=== PATIENT | male | born 1935 | race African-American/Black ===

== ENCOUNTER 2017-06-11 17:51 | Inpatient (IN) | payer MEDICARE, MEDICAID ==
[~2017-06-11] VITALS: Ht 175.3 cm; Wt 65.8 kg
--- NOTE | 2017-06-11 18:10 | NUR ---
JUDY AMBULIFE 719 FROM [facility] FOR MUSCLE WEAKNESS AND FEVER. NOTED RECTAL TEMP 101.9. SEEN BY MD FOR EVAL. PT AAOX2. DENIES OTHER SYMPTOMS. SAFETY AND COMFORT MEASURES PROVIDED. WILL MONITOR.
--- NOTE | 2017-06-11 18:20 | NUR ---
IV ACCESS STARTED, BLOOD DRAWN FOR LABS. MEDICATED ORDERED.
[2017-06-11 18:28] LABS: BASOPHILS # (AUTO) 0.1 /CMM (0.0-0.2); BASOPHILS % (AUTO) 0.7 % (0.0-2.0); EOSINOPHILS % (AUTO) 0.1 % (0.0-6.0); HEMATOCRIT 41 % (39-51); HEMOGLOBIN 13.8 g/dL (13.5-17.5); LYMPHOCYTES # (AUTO) 0.8 /CMM (0.8-4.8); MEAN CORPUSCULAR HEMOGLOBIN 33 PG (26.0-33.0); MEAN CORPUSCULAR HGB CONC 34 g/dl (31.0-36.0); MEAN CORPUSCULAR VOLUME 98 fL (80-96); MONOCYTES # (AUTO) 1.2 /CMM (0.1-1.30); MONOCYTES % (AUTO) 9.2 % (2.0-12.0); NEUTROPHILS # (AUTO) 11.4 /CMM (1.8-8.9); PLATELET COUNT (AUTO) 102 /CMM (150-450); RED BLOOD CELL COUNT(AUTO) 4.15 MIL/uL (4.5-6.0); WHITE BLOOD COUNT (AUTO) 13.5 K/uL (4.3-11.0)
[2017-06-11] MEDS ORDERED: IBUPROFEN 600 MG TABLET PO ONE ×2 (18:30→18:35)
[2017-06-11] MEDS ORDERED: ACETAMINOPHEN ES 500 MG TABLET PO ONE (18:30)
[2017-06-11] MEDS ORDERED: IV NS 0.9% 500 ML BAG IV ONE ×2 (18:30→19:30)
[2017-06-11] MEDS ORDERED: ACETAMINOPHEN ES 500 MG TABLET ONE (18:35)
[2017-06-11 18:37] LABS: CALCIUM, SERUM 9.5 mg/dL (8.5-10.1); CARBON DIOXIDE 32 mmol/L (21-32); CHLORIDE 96 mmol/L (98-107); CREATININE 1.5 mg/dL (0.6-1.3); GLUCOSE 112 mg/dL (74-106); POTASSIUM 4.1 mmol/L (3.5-5.1); SODIUM SERUM 135 mmol/L (136-145); UREA NITROGEN, BLOOD 19 mg/dL (7-18)
[2017-06-11 18:41] LABS: INR 1.22 (0.87-1.13)
[2017-06-11] MEDS ORDERED: AMLO2.5T PO (18:44)
[2017-06-11] MEDS ORDERED: ALBU18HF2 IH (18:44)
[2017-06-11] MEDS ORDERED: METF500T4 PO (18:44)
[2017-06-11] MEDS ORDERED: TRAZ-147 PO (18:44)
[2017-06-11] MEDS ORDERED: METO200T49 PO (18:44)
[2017-06-11] MEDS ORDERED: ASPI-1169 PO (18:44)
[2017-06-11] MEDS ORDERED: LISI40TA4 PO (18:44)
[2017-06-11] MEDS ORDERED: OLAN10TA3 PO (18:44)
[2017-06-11] MEDS ORDERED: ATOR20TA PO (18:44)
[2017-06-11] MEDS ORDERED: HYDR12.5 PO (18:44)
[2017-06-11 18:45] LABS: APPEARANCE,URINE Clear (CLEAR); BILIRUBIN,URINE Negative (NEGATIVE); BLOOD, URINE Trace-intact Ery/uL (NEGATIVE); COLOR,URINE Yellow (YELLOW); KETONES,URINE Negative (NEGATIVE); LEUKOCYTE ESTERASE ,URINE Negative (NEGATIVE); NITRITE, URINE Negative (NEGATIVE); PROTEIN,URINE >=300 mg/dl (NEGATIVE); UGLUCOSE Negative (NEGATIVE)
[2017-06-11 18:45] LABS: TROPONIN I 0.037 ng/mL (0.00-0.056)
[2017-06-11 18:50] LABS: ALANINE AMINOTRANSFERASE 45 U/L (12-78); ALBUMIN 3.6 g/dL (3.4-5.0); ALKALINE PHOSPHATASE 56 U/L (46-116); ASPARTATE AMINOTRANSFERASE 38 U/L (15-37); B-TYPE NATRIURETIC PEPTIDE 2451 PG/ML (0-125); BILIRUBIN,DIRECT 0.2 mg/dL (0.0-0.2); BILIRUBIN,TOTAL 0.7 mg/dL (0.2-1.0); TOTAL PROTEIN, SERUM 7.7 g/dL (6.4-8.2)
[2017-06-11 18:57] LABS: BACTERIA,URINE Few /HPF (None Seen); SQUAMOUS EPITHELIAL CELL,UR Rare /HPF (None Seen); WBC,URINE 0-2 /HPF (0-3)
[2017-06-11] MEDS ORDERED: PIPERACILLIN /TAZOBACTAM 3.375 G VIAL IV ONE (19:25)
[2017-06-11] MEDS ORDERED: PIPERACILLIN /TAZOBACTAM 3.375 G in IV D5W 50 ML IV ONE (19:30)
[2017-06-11] MEDS ORDERED: VANCOMYCIN 1 GM in IV D5W 250 ML IV ONE (19:30)
[2017-06-11] MEDS ORDERED: VANCOMYCIN 1 GM VIAL ONE (19:36)
[2017-06-11 20:00] VITALS: BP 138/64
--- NOTE | 2017-06-11 20:10 | NUR ---
BED AVAILABLE AT 307-1. WILL TRANSPORT SOON
--- NOTE | 2017-06-11 20:15 | NUR ---
CARRIAGE RIDER ADMITTING NOTES: ADMITTED AN 81 YO MALE PATIENT WHO WAS BROUGHT TO ER FROM [facility] DUE TO WEAKNESS AND FEVER. PATIENT WAS BROUGHT TO TELE FLOOR VIA GURNEY, AOX3, ON O2 AT 2 LPM VIA NC, BREATHING EVEN AND UNLABORED AT RATE OF 18-22, NO SOB,BUT WITH CRACKLES HEARD UPON AUSCULTATION. PATIENT ALSO NOTED TO BE COUGHING, BUT UNABLE TO EXPECTORATE EFFICIENTLY. APPEARS CALM AND IN NO DISTRESS, DENIES CHEST PAIN OR . PIV OVER RAC G 20 INTACT AND PATENT TO FLUSH. PIV OVER L HAND G 20 INTACT AND PATENT TO FLUSH. ADMITTING CARE DONE, MAINTAINED HOB ELEVATED. BED IN LOWEST AND LOCKED POSITION. CALL LIGHT WITHIN REACH. PATIENT STATES HE DOES NOT HAVE ANY FAMILY, THAT HE MAKES HIS OWN DECISIONS, AND THAT HE WISHES TO BE FULL CODE.
--- NOTE | 2017-06-11 20:15 | NUR ---
PATIENT TRANSPORTED TO ROOM BY SALES/MARKETING.
--- NOTE | 2017-06-11 21:08 | NUR ---
CALLED DR ORTIZ FOR ADMITTING ORDERS. SPOKE TO HONG MALONE NP, ADMITTING ORDERS GIVEN. ORDERED FOR HOME MEDS TO BE CONTINUED.
[2017-06-11] MEDS ORDERED: IPRATROPIUM NEB FS 0.5 MG/2.5 ML AMPUL.NEB NEB PRN (21:30)
[2017-06-11] MEDS ORDERED: ALBUTEROL FS 2.5 MG/0.5 ML VIAL.NEB NEB PRN (21:30)
[2017-06-11] MEDS ORDERED: IPRATROPIUM NEB FS 0.5 MG/2.5 ML AMPUL.NEB ONE (22:42)
[2017-06-11] MEDS ORDERED: ALBUTEROL FS 2.5 MG/0.5 ML VIAL.NEB ONE (22:42)
[2017-06-11] MEDS ORDERED: ALBUTEROL FS 2.5 MG/0.5 ML VIAL.NEB NEB SCH (23:30)
[2017-06-11] MEDS ORDERED: IPRATROPIUM NEB FS 0.5 MG/2.5 ML AMPUL.NEB NEB SCH (23:30)
[2017-06-12] VITALS (7 sets, daily range): BP systolic 104–139; BP diastolic 52–73
[2017-06-12 06:00] LABS: BASOPHILS % (AUTO) 0.1 % (0.0-2.0); EOSINOPHILS % (AUTO) 0.4 % (0.0-6.0); HEMATOCRIT 39 % (39-51); HEMOGLOBIN 13.2 g/dL (13.5-17.5); LYMPHOCYTES # (AUTO) 0.8 /CMM (0.8-4.8); LYMPHOCYTES % (AUTO) 6.2 % (20.0-44.0); MEAN CORPUSCULAR HEMOGLOBIN 34 PG (26.0-33.0); MEAN CORPUSCULAR HGB CONC 34 g/dl (31.0-36.0); MEAN CORPUSCULAR VOLUME 99 fL (80-96); MONOCYTES % (AUTO) 7.6 % (2.0-12.0); NEUTROPHILS # (AUTO) 10.9 /CMM (1.8-8.9); NEUTROPHILS % (AUTO) 85.7 % (43.0-81.0); PLATELET COUNT (AUTO) 87 /CMM (150-450); RDW COEFFICIENT OF VARIATION 13.1 (11.5-15.0); RED BLOOD CELL COUNT(AUTO) 3.93 MIL/uL (4.5-6.0); WHITE BLOOD COUNT (AUTO) 12.7 K/uL (4.3-11.0)
[2017-06-12 06:45] LABS: ALANINE AMINOTRANSFERASE 48 U/L (12-78); ALKALINE PHOSPHATASE 54 U/L (46-116); ASPARTATE AMINOTRANSFERASE 46 U/L (15-37); CALCIUM, SERUM 9.1 mg/dL (8.5-10.1); CARBON DIOXIDE 32 mmol/L (21-32); CHLORIDE 99 mmol/L (98-107); CHOLESTEROL 85 mg/dL (<200); CREATININE 1.3 mg/dL (0.6-1.3); GLUCOSE 102 mg/dL (74-106); HDL CHOLESTEROL 42 mg/dL (40-60); LDL 38 mg/dL (0-99); POTASSIUM 3.5 mmol/L (3.5-5.1); SODIUM SERUM 137 mmol/L (136-145); THYROID STIMULATING HORMONE 0.782 uIU/mL (0.358-3.74); TOTAL PROTEIN, SERUM 6.9 g/dL (6.4-8.2); TRIGLYCERIDES 34 mg/dL (30-150); UREA NITROGEN, BLOOD 21 mg/dL (7-18)
[2017-06-12 06:56] LABS: BAND % (MANUAL) 16 % (0.0-5.0); LYMPHOCYTES % (MANUAL) 8 % (16-48); MONOCYTES % (MANUAL) 5 % (0-11.0); NEUTROPHILS % (MANUAL) 71 (42-76)
--- NOTE | 2017-06-12 07:00 | NUR ---
WIND TURBINE SERVICE TECHNICIAN CLOSING NOTES: PATIENT IN BED, AOX3, ON O2 AT 2 LPM VIA NC, BREATHING EVEN AND UNLABORED. APPEARS CALM AND IN NO DISTRESS, WAS ABLE TO SLEEP WELL THROUGH NIGHT. DENIES PAIN. ON TELE MONITORING : SINUS RHYTHM 80S. NO ACUTE CHANGE IN CONDITION NOTED THROUGH SHIFT. PROVIDED FOR COMFORT AND SAFETY. BED IN LOWEST AND LOCKED POSITION, SIDERAILS UP X3, CALL LIGHT WITHIN REACH. WILL ENDORSE TO AM RN FOR MANUELA.
--- NOTE | 2017-06-12 07:25 | NUR ---
RN OPENING NOTES RECEIVED PATIENT IN BED RESTING, A/OX3. NO ACUTE DISTRESS, NO SOB, DENIES PAIN OR DISCOMFORT AT THE MOMENT. ON 2LPM O2 VIA NC, SAT 93%. ON TELEMONITORING SR 77 WITH BBB, PAC,PVC. IV SITE INTACT AND PATENT. KEPT PATIENT SAFE AND COMFORTABLE. BED IN LOW, LOCKED POSITION, SIDERAILS UPX2, HOB ELEVATED. WILL CONTINUE TO MONITOR ACCORDINGLY.
[2017-06-12] MEDS: ALBUTEROL FS 2.5 MG/0.5 ML VIAL.NEB NEB SCH ×4 (08:22→20:04)
[2017-06-12] MEDS: IPRATROPIUM NEB FS 0.5 MG/2.5 ML AMPUL.NEB NEB SCH ×4 (08:22→20:04)
[2017-06-12] MEDS: POTASSIUM CHLORIDE 10 MEQ TABLET.SA PO SCH (09:17)
[2017-06-12] MEDS: FUROSEMIDE 20 MG/2 ML VIAL IV SCH (09:18)
[2017-06-12] MEDS: CEFTRIAXONE 1 G in IV D5W 50 ML IV SCH (09:49)
[2017-06-12] MEDS: AZITHROMYCIN 500 MG in IV D5W 250 ML IV SCH (10:32)
[2017-06-12] MEDS ORDERED: ALBUTEROL FS 2.5 MG/0.5 ML VIAL.NEB NEB PRN (13:30)
[2017-06-12] MEDS: METOPROLOL SUCCINATE 50 MG TAB.SR.24H PO SCH (13:52)
[2017-06-12] MEDS: NICOTINE PATCH (7MG) 7 MG PATCH.TD24 TD SCH (13:55)
--- NOTE | 2017-06-12 19:30 | NUR ---
MS/RN NOTES RECEIVED PT. LYING IN BED. PT. IS AWAKE, ALERT AND ORIENTED X3. BREATHING EVEN AND UNLABORED ON 2LPM O2 VIA NC. NO SOB, RESPIRATORY DISTRESS OR COMPLAINTS OF PAIN NOTED AT THIS TIME. PT. WITH RIGHT AC 20 GAUGE IV SALINE LOCK PRESENT, PATENT AND INTACT. PT. WITH LEFT HAND 20 GAUGE IV SALINE LOCK PRESENT, PATENT AND INTACT. BED LOCKED AND IN LOWEST POSITION, SIDE RAILS UP X3, CALL LIGHT WITHIN REACH, BED ALARM ON, WILL CONTINUE TO MONITOR.
--- NOTE | 2017-06-12 19:38 | NUR ---
RN CLOSING NOTES PATIENT IN BED RESTING. NO ACUTE DISTRESS, NO SOB NOTED. ALL NEEDS ATTENDED AND PROVIDED. KEPT PATIENT SAFE AND COMFORTABLE. BED IN LOW, LOCKED POSITION, HOB ELEVATED, SIDERAILS UPX2, CALL LIGHT IN REACH. ENDORSED TO NIGHT RN FOR MANUELA.
[2017-06-12] MEDS: OLANZAPINE 10 MG TABLET PO SCH (21:40)
[2017-06-12] MEDS: TRAZODONE 50 MG TABLET PO SCH (21:40)
[2017-06-12] MEDS: ENOXAPARIN SODIUM 40 MG/0.4 ML DISP.SYRIN SQ SCH (21:42)
--- NOTE | 2017-06-13 06:46 | NUR ---
MS/RN NOTES PT. IS LYING IN BED RESTING. BREATHING EVEN AND UNLABORED ON 2LPM O2 VIA NC. NO SOB, RESPIRATORY DISTRESS OR COMPLAINTS OF PAIN NOTED AT THIS TIME. PT. WITH RIGHT AC 20 GAUGE IV SALINE LOCK PRESENT, PATENT AND INTACT. PT. WITH LEFT HAND 20 GAUGE IV SALINE LOCK PRESENT, PATENT AND INTACT. ALL PT. NEEDS MET. ALL DUE MEDICATIONS GIVEN. BED LOCKED AND IN LOWEST POSITION, SIDE RAILS UP X3, CALL LIGHT WITHIN REACH, BED ALARM ON, WILL ENDORSE TO DAYSHIFT NURSE FOR CONTINUITY OF CARE.
[2017-06-13 08:00] VITALS: BP 110/71
--- NOTE | 2017-06-13 08:00 | NUR ---
m/s cloth burler: initial assessment received pt in bed awake, a/ox3. no c/o sob, chest pain, n/v/ or any discomfort. instructed to call for assistance. will continue to monitor.
[2017-06-13] MEDS: ALBUTEROL FS 2.5 MG/0.5 ML VIAL.NEB NEB SCH ×4 (08:30→20:05)
[2017-06-13] MEDS: IPRATROPIUM NEB FS 0.5 MG/2.5 ML AMPUL.NEB NEB SCH ×4 (08:31→20:05)
[2017-06-13] MEDS: NICOTINE PATCH (7MG) 7 MG PATCH.TD24 TD SCH (08:40)
[2017-06-13] MEDS: ASPIRIN 81 MG TAB.CHEW PO SCH (08:41)
[2017-06-13] MEDS: POTASSIUM CHLORIDE 10 MEQ TABLET.SA PO SCH (08:41)
[2017-06-13] MEDS: HYDROCHLOROTHIAZIDE 25 MG TABLET PO SCH (08:41)
[2017-06-13] MEDS: AMLODIPINE BESYLATE 2.5 MG TABLET PO SCH (08:41)
[2017-06-13] MEDS: LISINOPRIL (20MG) 20 MG TABLET PO SCH (08:41)
[2017-06-13] MEDS: METFORMIN 500 MG TABLET PO SCH (08:44)
--- NOTE | 2017-06-13 10:00 | NUR ---
m/s bullet maker: notes up with p.t. using fww at this time, mohinder. niki.
[2017-06-13] MEDS: FUROSEMIDE 20 MG/2 ML VIAL IV SCH (10:32)
[2017-06-13] MEDS: CEFTRIAXONE 1 G in IV D5W 50 ML IV SCH (10:33)
[2017-06-13] MEDS: AZITHROMYCIN 500 MG in IV D5W 250 ML IV SCH (11:32)
--- NOTE | 2017-06-13 12:00 | NUR ---
m/s submarine element coordinator: md visit seen and examined by dr. delacruz with no new order at this time.
[2017-06-13] MEDS: METOPROLOL SUCCINATE 50 MG TAB.SR.24H PO SCH (13:09)
--- NOTE | 2017-06-13 14:00 | NUR ---
m/s human resource adviser: notes resting comfortable in bed with no distress noted. will continue to monitor.
[2017-06-13 16:00] VITALS: BP 109/65
[2017-06-13] MEDS: LACTOBACILLUS RHAMNOSUS GG 1 EACH CAP.SPRINK PO SCH (16:59)
--- NOTE | 2017-06-13 18:30 | NUR ---
m/s database report writer: notes resting comfortable in bed. needs attended. no distress noted. will continue to monitor.
[2017-06-13 20:00] VITALS: BP 138/77
[2017-06-13] MEDS: OLANZAPINE 10 MG TABLET PO SCH (21:24)
[2017-06-13] MEDS: ATORVASTATIN 10 MG TABLET PO SCH (21:24)
[2017-06-13] MEDS: TRAZODONE 50 MG TABLET PO SCH (21:24)
[2017-06-13] MEDS: ENOXAPARIN SODIUM 40 MG/0.4 ML DISP.SYRIN SQ SCH (21:25)
--- NOTE | 2017-06-14 06:42 | NUR ---
MS/RN NOTES PT. IS LYING IN BED RESTING. BREATHING EVEN AND UNLABORED ON 2LPM O2 VIA NC. NO SOB, RESPIRATORY DISTRESS OR COMPLAINTS OF PAIN NOTED AT THIS TIME. PT. WITH RIGHT AC 20 GAUGE IV SALINE LOCK PRESENT, PATENT AND INTACT. PT. WITH LEFT HAND 20 GAUGE IV SALINE LOCK PRESENT, PATENT AND INTACT. ALL PT. NEEDS MET. ALL DUE MEDICATIONS GIVEN,. BED LOCKED AND IN LOWEST POSITION, SIDE RAILS UP X3, CALL LIGHT WITHIN REACH, BED ALARM ON, WILL ENDORSE TO DAYSHIFT NURSE FOR CONTINUITY OF CARE.
--- NOTE | 2017-06-14 07:30 | NUR ---
MS RN RECEIVED ON BED, AWAKE,ALERT,ORIENTED X3,NOT IN ANY FORM OF DISTRESS, RESPIRATIONS EVEN AND UNLABORED, NO DISTRESS NOTED, WILL MONITOR PATIENT'S CONDITION.
[2017-06-14 08:00] VITALS: BP 127/80
[2017-06-14] MEDS: IPRATROPIUM NEB FS 0.5 MG/2.5 ML AMPUL.NEB NEB SCH ×4 (08:12→19:38)
[2017-06-14] MEDS: ALBUTEROL FS 2.5 MG/0.5 ML VIAL.NEB NEB SCH ×4 (08:12→19:38)
--- NOTE | 2017-06-14 09:00 | NUR ---
MS CHANEY BREAKFAST SERVED, DUE MEDS GIVEN,TOLERATED WELL.
[2017-06-14] MEDS: NICOTINE PATCH (7MG) 7 MG PATCH.TD24 TD SCH (09:28)
[2017-06-14] MEDS: FUROSEMIDE 20 MG/2 ML VIAL IV SCH (09:28)
[2017-06-14] MEDS: ASPIRIN 81 MG TAB.CHEW PO SCH (09:28)
[2017-06-14] MEDS: LACTOBACILLUS RHAMNOSUS GG 1 EACH CAP.SPRINK PO SCH ×2 (09:29→16:26)
[2017-06-14] MEDS: POTASSIUM CHLORIDE 10 MEQ TABLET.SA PO SCH (09:29)
[2017-06-14] MEDS: AMLODIPINE BESYLATE 2.5 MG TABLET PO SCH (09:30)
[2017-06-14] MEDS: LISINOPRIL (20MG) 20 MG TABLET PO SCH (09:30)
[2017-06-14] MEDS: METFORMIN 500 MG TABLET PO SCH (09:31)
[2017-06-14] MEDS: AZITHROMYCIN 500 MG in IV D5W 250 ML IV SCH (09:31)
[2017-06-14] MEDS: CEFTRIAXONE 1 G in IV D5W 50 ML IV SCH (09:33)
[2017-06-14] MEDS: HYDROCHLOROTHIAZIDE 25 MG TABLET PO SCH (09:33)
[2017-06-14] MEDS: METOPROLOL SUCCINATE 50 MG TAB.SR.24H PO SCH (14:01)
--- NOTE | 2017-06-14 14:30 | NUR ---
MS RN WAS SEEN BY DR. DIANA Barth/ ORDERS MADE AND CARRIED OUT.
[2017-06-14 16:00] VITALS: BP 130/60
--- NOTE | 2017-06-14 18:32 | NUR ---
MS RN ON BED,NO DISTRESS NOTED,ALL NEEDS ATTENDED.
[2017-06-14 20:00] VITALS: BP_SYST 147; BP_DIAS 69; BP_DIAS 79
--- NOTE | 2017-06-14 20:00 | NUR ---
RN NOTES RECEIVED PT. AWAKE ON BED, A/OX3, HR IS FLUCTUATING BETWEEN 130-140, CHECK THE PT, V/S STABLE PT. DENIES PAIN, PT. IS GETTING HIS BREATHING TREATMENT, NO SOB, CALL LIGHT WITHIN REACH, SIDERAILSUPX2, WILL CONTINUE TO MONITOR
--- NOTE | 2017-06-14 20:15 | NUR ---
RN NOTES STAT EKG ORDERED FOR THIS PT.
--- NOTE | 2017-06-14 20:29 | NUR ---
RN NOTES PAGED DR. ORTIZ AND INFORMED HIM REGARDING PT EKG OF AFIB WITH RVR HR-125-130, WAITING FOR DR. ORTIZ TO CALL BACK
--- NOTE | 2017-06-14 20:45 | NUR ---
RN NOTES DR. ORTIZ CALLED BACK AND INFORMED HIM REGARDING PT. EKG .. PT IS ON A-FIB WITH RVR.. DR. ORTIZ ORDERED TO START METOPROLOL 50 MG PO BID AND ELIQUIS 5 MG PO BID AND TO D/C LISINOPRIL, ASA WEEL THE LOVENOX, ORDER NOTED AND CARRIED OUT
[2017-06-14] MEDS ORDERED: METOPROLOL TARTRATE 50 MG TABLET ONE (20:47)
[2017-06-14] MEDS: METOPROLOL TARTRATE 50 MG TABLET PO SCH (20:49)
--- NOTE | 2017-06-14 21:50 | NUR ---
RN NOTES CALLED DR. ORTIZ AND INFORMED HIM THAT ELIQUIS 5 MG PO IS NOT AVAILABLE, PHARMACY IS CLOSED. DR. ORTIZ GAVE AN ORDER TO USE HIS OTHER PATIENT AMY, NASREEN ELIQUIS MEDICATION FOR TONIGHT. CHARGE NURSE MADE AWARE. ORDER NOTED AND CARRIED OUT
[2017-06-14] MEDS: APIXABAN 5 MG TABLET PO SCH (21:53)
[2017-06-14] MEDS: ATORVASTATIN 10 MG TABLET PO SCH (21:54)
[2017-06-14] MEDS: TRAZODONE 50 MG TABLET PO SCH (21:54)
[2017-06-14] MEDS: OLANZAPINE 10 MG TABLET PO SCH (21:55)
[2017-06-15] VITALS: BP 110/63
[2017-06-15 01:20] VITALS: BP 121/55
[2017-06-15 04:00] VITALS: BP_SYST 101; BP_SYST 129; BP_DIAS 53; BP_DIAS 64
--- NOTE | 2017-06-15 06:35 | NUR ---
RN NOTES SLEEPING BUT AROUSABLE, PT. STILL ON A-FIB , HR- 112 AT THIS TIME, DENIES PAIN, NO SOB, MORNING CARE RENDERED, CALL LIGHT WITHIN REACH, SIDERAILSUPX2 , PT. NEEDS ATTENDED
[2017-06-15 07:03] VITALS: BP 104/63
--- NOTE | 2017-06-15 07:10 | NUR ---
RN NOTES SPOKE TO PHARMACY HARMONY AND INFORMED HER REGARDING DR. ORTIZ ORDERED LAST NIGHT ABOUT ELIQUIS MEDICATION. DR. ORTIZ ORDERED TO USE HIS OTHER PT'S ELIQUIS FOR THIS PT.
[2017-06-15] MEDS: IPRATROPIUM NEB FS 0.5 MG/2.5 ML AMPUL.NEB NEB SCH ×4 (07:38→19:57)
[2017-06-15] MEDS: ALBUTEROL FS 2.5 MG/0.5 ML VIAL.NEB NEB SCH ×4 (07:38→19:57)
--- NOTE | 2017-06-15 07:41 | NUR ---
SUPERVISOR COOK ROOM OPENING NOTES RECEIVED PT FROM NIGHTSHIFT NURSE IN STABLE CONDITION. PT IS A/O X3. NO SOB OR SIGNS OF DISTRESS NOTED. BREATHING IS EVEN AN UNLABORED. PT IS A ON 2L VIA NC AND SATING WELL @97%. PT IS SR ON THE TELE MONITOR WITH A HR OF 98. MULTIPLE IVS NOTED ON LEFT HAND 20G AND RIGHT FOREARM 20G. BOTH IVS ARE PATENT AND INTACT. NO REDNESS OR SIGNS OF INFILTRATION NOTED TO [place]. BED IN LOW LOCKED POSITION, SIDE RAILS UP X2, CALL LIGHT WITHIN REACH. WILL CONTINUE TO MONITOR.
[2017-06-15] MEDS: HYDROCHLOROTHIAZIDE 25 MG TABLET PO SCH (09:00)
[2017-06-15] MEDS: FUROSEMIDE 20 MG/2 ML VIAL IV SCH (09:13)
[2017-06-15] MEDS: CEFTRIAXONE 1 G in IV D5W 50 ML IV SCH (09:13)
[2017-06-15] MEDS: LACTOBACILLUS RHAMNOSUS GG 1 EACH CAP.SPRINK PO SCH ×2 (09:16→17:22)
[2017-06-15] MEDS: POTASSIUM CHLORIDE 10 MEQ TABLET.SA PO SCH (09:16)
[2017-06-15] MEDS: METFORMIN 500 MG TABLET PO SCH (09:16)
[2017-06-15] MEDS: NICOTINE PATCH (7MG) 7 MG PATCH.TD24 TD SCH (09:17)
[2017-06-15] MEDS: METOPROLOL TARTRATE 50 MG TABLET PO SCH (09:17)
[2017-06-15] MEDS: AMLODIPINE BESYLATE 2.5 MG TABLET PO SCH (09:17)
[2017-06-15] MEDS: APIXABAN 5 MG TABLET PO SCH ×2 (10:24→17:22)
[2017-06-15] MEDS: AZITHROMYCIN 500 MG in IV D5W 250 ML IV SCH (10:24)
[2017-06-15] MEDS: METOPROLOL SUCCINATE 50 MG TAB.SR.24H PO SCH (13:27)
--- NOTE | 2017-06-15 18:58 | NUR ---
MARKETING GRAPHICS SPECIALIST NOTES PT REMAINS IN STABLE CONDITION. HE CONTINUES TO BE SR ON THE TELE MONITOR WITH PVCS. CURRENT HR IS 87. NO ACUTE CHANGES IN CONDITION THROUGHOUT SHIFT. VITALS STABLE. WILL ENDORSE TO NIGHTSHIFT NURSE FOR MANUELA
[2017-06-15 20:00] VITALS: BP_SYST 112; BP_SYST 118; BP_DIAS 62
--- NOTE | 2017-06-15 20:37 | NUR ---
CHILD WELFARE ASSISTANT INITIAL NOTES PT IS IN BED RESTING, A/O X3. NO SIGNS OF SOB OR DISTRESS, BREATHING EVENLY AND UNLABORED ON 2L NC,, SATING AT 97%. TELE MONITOR SHOWS SR 93 WITH BBB AND PAC. IVS ARE INTACT AND PATENT. BED IS IN LOW AND LOCKED POSITION, CALL LIGHT IS WITHIN REACH, WILL CONTINUE TO MONITOR PT
[2017-06-15] MEDS: TRAZODONE 50 MG TABLET PO SCH (21:39)
[2017-06-15] MEDS: OLANZAPINE 10 MG TABLET PO SCH (21:39)
[2017-06-15] MEDS: ATORVASTATIN 10 MG TABLET PO SCH (21:39)
[2017-06-16] VITALS: BP 118/60
--- NOTE | 2017-06-16 06:14 | NUR ---
STEAK TENDERIZER MACHINE CLOSING NOTES PT IS IN BED RESTING, A/O X2-3 WITH MOMENTS OF CONFUSION. TELE MONITOR SHOWING SR 82 WITH BBB AND PAC. NO SIGNS OF SOB OR DISTRESS. BREATHING EVENLY AND UNLABORED ON RA. NO MORNING AM LABS ORDERED. ALL NEEDS WERE ANTICIPATED AND MET. BED IS IN LOW AND LOCKED POSITION, CALL LIGHT WITHIN REACH. WILL ENDORSE TO DAY SHIFT.
[2017-06-16] MEDS: ALBUTEROL FS 2.5 MG/0.5 ML VIAL.NEB NEB SCH ×4 (07:23→19:19)
[2017-06-16] MEDS: IPRATROPIUM NEB FS 0.5 MG/2.5 ML AMPUL.NEB NEB SCH ×4 (07:24→19:19)
--- NOTE | 2017-06-16 07:45 | NUR ---
EMBEDDED SYSTEMS DEVELOPER OPENING NOTES PT A&0X2-3. PT WITH TELE MONITORING. PT WITH NC AT 2LPM, NO SOB OR BREATH OR S/S OF RESPIRATORY DISTRESS. LUNGS AUSCULTATE WITH RIGHT UPPER RHONCHI AND DAMP DIMINISHED LOWER LOBES. PT HOB ELEVATED. PT REPORTING NO PAIN. PT WITH IVC AT R UA G#20 INTACT SALINE FLUSHED AND PATENT. PT ALSO WITH IVC AT L HAND G#20 INTACT SALINE FLUSHED AND PATENT. PT REPORTING NO PAIN. BED IN LOWEST LOCKED POSITION PT BRIEFED ON TODAY'S POC AND IS WITHOUT CONCERN OR COMPLAINT AT THIS TIME.
[2017-06-16 08:00] VITALS: BP 138/78
[2017-06-16] MEDS: FUROSEMIDE 20 MG/2 ML VIAL IV SCH (08:30)
[2017-06-16] MEDS: POTASSIUM CHLORIDE 10 MEQ TABLET.SA PO SCH (08:34)
[2017-06-16] MEDS: NICOTINE PATCH (7MG) 7 MG PATCH.TD24 TD SCH (08:35)
[2017-06-16] MEDS: LACTOBACILLUS RHAMNOSUS GG 1 EACH CAP.SPRINK PO SCH ×2 (08:35→16:26)
[2017-06-16] MEDS: AMLODIPINE BESYLATE 2.5 MG TABLET PO SCH (08:36)
[2017-06-16] MEDS: CEFTRIAXONE 1 G in IV D5W 50 ML IV SCH (08:37)
[2017-06-16] MEDS: HYDROCHLOROTHIAZIDE 25 MG TABLET PO SCH (08:37)
[2017-06-16] MEDS: METFORMIN 500 MG TABLET PO SCH (08:37)
[2017-06-16] MEDS: APIXABAN 5 MG TABLET PO SCH ×2 (08:42→16:26)
[2017-06-16] MEDS: AZITHROMYCIN 250 MG TABLET PO SCH (11:13)
[2017-06-16 12:00] VITALS: BP 147/80
[2017-06-16] MEDS: METOPROLOL SUCCINATE 50 MG TAB.SR.24H PO SCH (12:37)
--- NOTE | 2017-06-16 14:40 | NUR ---
MS CHANEY. CITLALI D/C
[2017-06-16 16:00] VITALS: BP 175/97
--- NOTE | 2017-06-16 18:31 | NUR ---
MS RN NOTES. PT REMAINS A&0X3 WITH PERIODS OF CONFUSION THIS MORNING AFTER WAKING. PT RESTING IN BED. PT WITH O2 VIA NC AT 3LPM WITH SOB ON EXERTION. PT REPORTING NO PAIN. PT WITH IVCX2 INTACT AND OPERATIONAL AT L HAND G#20 AND R UA G#20. BED IN LOWEST LOCKED POSITION WITH CALL TABARES WITHIN REACH. ALL DAY NURSE DUTIES ATTENDED TO. PT WITHOUT CONCERN OR COMPLAINT AT THIS TIME. WILL ENDORSE TO NIGHT NURSE.
--- NOTE | 2017-06-16 19:35 | NUR ---
TELE/RN NOTES RECEIVED PT. LYING IN BED. AWAKE, ALERT AND ORIENTED X2-3. BREATHING EVEN AND UNLABORED ON 2LPM O2 VIA NC. NO SOB, RESPIRATORY DISTRESS OR COMPLAINTS OF PAIN NOTED AT THIS TIME. PT. WITH EXTERNAL SALES OPERATIONS LEAD PRESENT AND INTACT CURRENT RHYTHM = SINUS RHYTHM WITH BBB AND PAC'S HR 100. PT. WITH LEFT HAND 20 GAUGE IV SALINE LOCK PRESENT, PATENT AND INTACT. PT. WITH RIGHT UPPER ARM 20 GAUGE IV SALINE LOCK PRESENT, PATENT AND INTACT. BED LOCKED AND IN LOWEST POSITION, SIDE RAILS UP X3, CALL LIGHT WITHIN REACH, WILL CONTINUE TO MONITOR.
[2017-06-16 20:00] VITALS: BP 136/72
[2017-06-16] MEDS: OLANZAPINE 10 MG TABLET PO SCH (23:02)
[2017-06-16] MEDS: TRAZODONE 50 MG TABLET PO SCH (23:03)
[2017-06-16] MEDS: ATORVASTATIN 10 MG TABLET PO SCH (23:03)
[2017-06-17] VITALS: BP 128/68
[2017-06-17 04:00] VITALS: BP 123/70
--- NOTE | 2017-06-17 06:59 | NUR ---
TELE/RN NOTES PT. IS LYING IN BED. BREATHING EVEN AND UNLABORED ON 2LPM O2 VIA NC. NO SOB, RESPIRATORY DISTRESS OR COMPLAINTS OF PAIN NOTED AT THIS TIME. PT. WITH EXTERNAL VENDING SUPERVISOR PRESENT AND INTACT CURRENT RHYTHM = SINUS RHYTHM WITH BBB AND PAC'S HR 78. PT. WITH LEFT HAND 20 GAUGE IV SALINE LOCK PRESENT, PATENT AND INTACT. PT. WITH RIGHT UPPER ARM 20 GAUGE IV SALINE LOCK PRESENT, PATENT AND INTACT. ALL PT. NEEDS MET. ALL DUE MEDICATIONS GIVEN. BED LOCKED AND IN LOWEST POSITION, SIDE RAILS UP X3, CALL LIGHT WITHIN REACH, WILL ENDORSE TO DAYSHIFT NURSE FOR CONTINUITY OF CARE.
[2017-06-17] MEDS: ALBUTEROL FS 2.5 MG/0.5 ML VIAL.NEB NEB SCH ×3 (07:10→14:49)
[2017-06-17] MEDS: IPRATROPIUM NEB FS 0.5 MG/2.5 ML AMPUL.NEB NEB SCH ×3 (07:10→14:50)
--- NOTE | 2017-06-17 07:30 | NUR ---
PT RECEIVED RESTING COMFORTABLY IN BED WITH EYES CLOSED. NO S/S OR C/O PAIN OR DISTRESS NOTED. SIDE RAILS UP X2, CALL LIGHT LEFT WITHIN REACH. WILL CONTINUE PLAN OF CARE.
[2017-06-17 08:00] VITALS: BP 143/69
[2017-06-17] MEDS: APIXABAN 5 MG TABLET PO SCH (08:15)
[2017-06-17] MEDS: LACTOBACILLUS RHAMNOSUS GG 1 EACH CAP.SPRINK PO SCH (08:16)
[2017-06-17] MEDS: FUROSEMIDE 20 MG/2 ML VIAL IV SCH (08:16)
[2017-06-17] MEDS: METFORMIN 500 MG TABLET PO SCH (08:17)
[2017-06-17] MEDS: CEFTRIAXONE 1 G in IV D5W 50 ML IV SCH (08:17)
[2017-06-17] MEDS: HYDROCHLOROTHIAZIDE 25 MG TABLET PO SCH (08:17)
[2017-06-17] MEDS: POTASSIUM CHLORIDE 10 MEQ TABLET.SA PO SCH (08:17)
[2017-06-17] MEDS: NICOTINE PATCH (7MG) 7 MG PATCH.TD24 TD SCH (08:17)
[2017-06-17] MEDS: AMLODIPINE BESYLATE 2.5 MG TABLET PO SCH (08:18)
[2017-06-17] MEDS: AZITHROMYCIN 250 MG TABLET PO SCH (11:09)
[2017-06-17 16:16] VITALS: BP 148/84
[2017-06-17] MEDS: METOPROLOL SUCCINATE 50 MG TAB.SR.24H PO SCH (16:16)
--- NOTE | 2017-06-17 16:29 | NUR ---
PT TRANSFERRED TO [facility] DISCHARGE INSTRUCTIONS GIVEN ORDERED. ALL QUESTIONS AND CONCERNS ADDRESSED. PATIENT VERBALIZED UNDERSTANDING. IV REMOVED WITH CATHETER INTACT, PRESSURE DRESSING APPLIED. MEDICATION RECONCILIATION FORM COMPLETED, COPY GIVEN TO PATIENT. TELEMETRY UNIT RETURNED TO STATION. REPORT GIVEN TO JANETTE AT [facility]. PATIENT TRANSPORTED WITH ALL PERSONAL BELONGINGS. NO DISTRESS NOTED AT TIME OF DEPARTURE.
== END 2017-06-17 16:50 | DRG 871 ==
LOC: ER 17:53 → TELE 20:03 → MED 06-12 11:23 → TELE 06-14 16:34
PROVIDERS: ADMIT Internal Medicine; ATTEND Internal Medicine
DX: A41.9 Sepsis, unspecified organism (principal); G93.40 Encephalopathy, unspecified; J96.00 Acute respiratory failure, unspecified whether with hypoxia or hypercapnia; I50.33 Acute on chronic diastolic (congestive) heart failure; J15.9 Unspecified bacterial pneumonia; N17.9 Acute kidney failure, unspecified; D69.6 Thrombocytopenia, unspecified; I11.0 Hypertensive heart disease with heart failure; I48.0 Paroxysmal atrial fibrillation; J44.0 Chronic obstructive pulmonary disease with (acute) lower respiratory infection; E11.9 Type 2 diabetes mellitus without complications; F17.210 Nicotine dependence, cigarettes, uncomplicated; I25.10 Atherosclerotic heart disease of native coronary artery without angina pectoris; N40.0 Benign prostatic hyperplasia without lower urinary tract symptoms; Z79.84 Long term (current) use of oral hypoglycemic drugs
CPT/HCPCS: 36415; 71010-TC; 80048-TC; 80053-TC; 80061-TC; 80076-TC; 81000-TC; 83605-TC; 83880; 84443-TC; 84484-TC; 85025-TC; 85730-TC; 87040-TC; 87081-TC; 87086-TC; 87400; 93307-TC; 94799-TC; 97116-TC; 97530-TC; A4216; A4606; J0456; J0696; J1650; J1940; J2543; J3370; J7040; J7050; J7060; Z7610